=== PATIENT | male | born 1980 | race Caucasian/White ===

== ENCOUNTER 2017-09-27 05:46 | Inpatient (IN) ==
[2017-09-27] MEDS ORDERED: SCOPOLAMINE 1.5 MG PATCH TRANSDERM SCH (06:00)
[2017-09-27] MEDS ORDERED: HYOSCYAMINE 0.125 MG TABLET SL SCH (06:00)
[2017-09-27] MEDS ORDERED: PANTOPRAZOLE 40 MG VIAL IV ONE ×2 (06:00→06:07)
[2017-09-27] MEDS ORDERED: cefOXitin 3,000 MG in SODIUM CHLORIDE 0.9% 100 ML IV ONE (06:00)
[2017-09-27] MEDS ORDERED: HEPARIN 5,000 UNIT/1 ML VIAL SUBCUT ONE (06:00)
[2017-09-27] MEDS ORDERED: ACETAMINOPHEN INJ 1,000 MG in PREMIX 1 EACH IV ONE (06:00)
[2017-09-27] MEDS ORDERED: HYOSCYAMINE 0.125 MG TABLET ONE (06:08)
[2017-09-27] MEDS ORDERED: SCOPOLAMINE 1.5 MG PATCH TRANSDERM ONE (06:08)
[2017-09-27] MEDS ORDERED: HEPARIN 5,000 UNIT/1 ML VIAL ONE (06:08)
[2017-09-27] MEDS ORDERED: ACETAMINOPHEN 1,000 MG/100 ML VIAL IV ONE (06:08)
[2017-09-27] MEDS ORDERED: LIDOCAINE 1%/EPI INJ 20 ML VIAL ONE (06:24)
[2017-09-27] MEDS ORDERED: BUPIVACAINE MPF 0.25% /EPI 30 ML VIAL ONE (06:24)
[2017-09-27] MEDS ORDERED: TISSUE ADHESIVE 1 EACH APPLICATOR TOP ONE ×2 (06:24→10:11)
[2017-09-27] MEDS ORDERED: BUPIVACAINE LIPOSOMAL 20 ML/266 MG VIAL ONE (06:24)
[2017-09-27 06:32] LABS: INR 0.9; PT Patient Result 9.9 SECS; Partial Thromboplastin Time 25.8 SECS (0-40)
[2017-09-27 06:33] LABS: Apearance,Urine Slightly Hazy (Clear); Bilirubin,Urine Negative (Negative); Blood, Urine Negative (Negative); Glucose,Urine (UA) Negative (Negative); Ketones,Urine Negative (Negative); Mucus,Urine Few /LPF (Occasional); Nitrite,Urine Negative (Negative); Protein,Urine 30 MG/DL; RBC,Urine 1 /HPF (0-4); Squamous Epithelial Cell,Urine Occasional /HPF (0-10); Urine Color Yellow (Yellow); Urine Specific Gravity 1.024 (1.001-1.035); Urine Urobilinogen < 2.0 EU/DL (0.2-1.0); WBC,Urine 4 /HPF (0-6)
[2017-09-27] MEDS ORDERED: LACTATED RINGERS 1,000 ML IV SCH (07:30)
[2017-09-27] MEDS ORDERED: SUGAMMADEX 200 MG/2 ML VIAL IV ONE (09:51)
[2017-09-27] MEDS ORDERED: MIDAZOLAM 2 MG/2 ML VIAL ONE (10:26)
[2017-09-27] MEDS ORDERED: PROPOFOL 200 MG/20 ML VIAL IV ONE (10:26)
[2017-09-27] MEDS ORDERED: SEVOFLURANE 1 UNIT/15 MINUTE INH ONE (10:26)
[2017-09-27] MEDS ORDERED: DEXAMETHASONE 10 MG/1 ML VIAL ONE (10:26)
[2017-09-27] MEDS ORDERED: PHENYLEPHRINE 1 MG/10 ML SYRINGE IV ONE (10:27)
[2017-09-27] MEDS ORDERED: ROCURONIUM 100 MG/10 ML VIAL IV ONE (10:27)
[2017-09-27] MEDS ORDERED: ONDANSETRON 4 MG/2 ML VIAL ONE ×2 (10:27→11:02)
[2017-09-27] MEDS ORDERED: LACTATED RINGERS 1,000 ML IV ONE (10:27)
[2017-09-27] MEDS ORDERED: SUCCINYLCHOLINE 200 MG/10 ML VIAL ONE (10:27)
[2017-09-27] MEDS ORDERED: ALBUTEROL INHALER 8 GM INH ONE (10:28)
[2017-09-27] MEDS ORDERED: PROMETHAZINE INJ 25 MG in SODIUM CHLORIDE 0.9% 50 ML IV PRN (10:40)
[2017-09-27] MEDS ORDERED: MORPHINE 10 MG/1 ML VIAL IV PRN (10:40)
[2017-09-27] MEDS ORDERED: diphenhydrAMINE 50 MG/1 ML VIAL IV PRN (10:40)
[2017-09-27] MEDS ORDERED: ONDANSETRON 4 MG/2 ML VIAL IV PRN ×2 (10:40→11:56)
[2017-09-27] MEDS ORDERED: MEPERIDINE 25 MG/1 ML VIAL ONE ×2 (11:02→12:21)
[2017-09-27] MEDS: MEPERIDINE 25 MG/1 ML VIAL IV PRN ×2 (11:05→12:25)
[2017-09-27] MEDS ORDERED: hydrALAZINE 20 MG/1 ML VIAL IV PRN (11:56)
[2017-09-27] MEDS ORDERED: MORPHINE 4 MG/1 ML VIAL IV PRN (11:56)
[2017-09-27] MEDS: LACTATED RINGERS 1,000 ML IV SCH ×2 (12:39→19:53)
[2017-09-27 16:09] LABS: Basophils # 0.1 10*3/uL (0.0-0.2); Basophils % 0.3 % (0.0-0.8); Hematocrit 43.2 VOL% (42.0-52.0); Hemoglobin 14.4 GM/DL (14.0-18.0); Immature Granulocytes % 0.7 %; Immature Granulocytes Absolute 0.15 #; Lymphocytes # 0.9 10*3/uL (1.4-4.0); Lymphocytes % 3.9 % (21.2-54.2); Mean Corpuscular HGB Conc 33.3 GM/DL (32-36); Mean Corpuscular Hemoglobin 30 PG (27-34); Mean Corpuscular Volume 90.4 FL (87-102); Mean Platelet Volume 11.7 FL (9.6-12.0); Monocytes # 0.2 10*3/uL (0.11-0.8); Monocytes % 0.9 % (1.7-12.7); Neutrophils # 21.5 10*3/uL (1.4-7.4); Neutrophils % 94.2 % (38.7-73.9); Platelet Count 298 T/CUMM (130-400); Red Blood Count 4.78 MC/CUMM (3.8-5.5); Red Cell Distribution Width 13.2 % (9.3-17.3); White Blood Count 22.8 T/CUMM (4-12)
[2017-09-27 16:26] LABS: Calcium 8.8 MG/DL (8.5-10.1); Osmolality,Calculated 279.5 MOS/KG (273-304); Potassium 3.8 MMOL/L (3.5-5.1)
[2017-09-27] MEDS: ceFAZolin 2,000 MG in PREMIX 1 EACH IV SCH (16:41)
[2017-09-27 16:54] LABS: Band Neutrophils 6 % (0-10); Lymphocytes 3 % (20-55); Segmented Neutrophils 88 % (50-85); Total Cells Counted 100
[2017-09-27 16:55] LABS: Platelet Estimate Normal
[2017-09-27] MEDS: HYDROcod/ACETAMIN 7.5-325 MG/15 ML UDCUP PO PRN ×2 (17:29→21:53)
[2017-09-28] MEDS: HYDROcod/ACETAMIN 7.5-325 MG/15 ML UDCUP PO PRN ×5 (01:55→22:26)
[2017-09-28] MEDS: ceFAZolin 2,000 MG in PREMIX 1 EACH IV SCH (01:58)
[2017-09-28] MEDS: LACTATED RINGERS 1,000 ML IV SCH ×2 (02:01→09:34)
[2017-09-28 05:31] LABS: Basophils % 0.1 % (0.0-0.8); Eosinophils % 0.1 % (0.00-10.9); Hematocrit 39.5 VOL% (42.0-52.0); Hemoglobin 13.5 GM/DL (14.0-18.0); Immature Granulocytes % 0.7 %; Immature Granulocytes Absolute 0.14 #; Lymphocytes # 1.8 10*3/uL (1.4-4.0); Lymphocytes % 8.5 % (21.2-54.2); Mean Corpuscular HGB Conc 34.2 GM/DL (32-36); Mean Corpuscular Hemoglobin 30 PG (27-34); Mean Corpuscular Volume 88.2 FL (87-102); Mean Platelet Volume 11.5 FL (9.6-12.0); Monocytes # 1.2 10*3/uL (0.11-0.8); Monocytes % 5.6 % (1.7-12.7); Neutrophils # 17.7 10*3/uL (1.4-7.4); Platelet Count 301 T/CUMM (130-400); Red Blood Count 4.48 MC/CUMM (3.8-5.5); Red Cell Distribution Width 13.2 % (9.3-17.3); White Blood Count 20.8 T/CUMM (4-12)
[2017-09-28 06:01] LABS: Calcium 8.8 MG/DL (8.5-10.1); Osmolality,Calculated 276.5 MOS/KG (273-304); Potassium 3.6 MMOL/L (3.5-5.1)
[2017-09-28 06:05] LABS: Hypochromasia Slight; Lymphocytes 8 % (20-55); Platelet Estimate Adequate; Segmented Neutrophils 83 % (50-85); Total Cells Counted 100
[2017-09-28] MEDS: PANTOPRAZOLE 40 MG VIAL IV SCH (09:25)
[2017-09-28 15:03] LABS: Basophils # 0.1 10*3/uL (0.0-0.2); Basophils % 0.3 % (0.0-0.8); Eosinophils # 0.1 10*3/uL (0.0-0.87); Eosinophils % 0.4 % (0.00-10.9); Hematocrit 40.2 VOL% (42.0-52.0); Hemoglobin 13.2 GM/DL (14.0-18.0); Immature Granulocytes % 0.5 %; Lymphocytes # 2.7 10*3/uL (1.4-4.0); Lymphocytes % 13.3 % (21.2-54.2); Mean Corpuscular HGB Conc 32.8 GM/DL (32-36); Mean Corpuscular Hemoglobin 30 PG (27-34); Mean Corpuscular Volume 90.3 FL (87-102); Mean Platelet Volume 11.2 FL (9.6-12.0); Monocytes # 1.5 10*3/uL (0.11-0.8); Monocytes % 7.5 % (1.7-12.7); Neutrophils # 15.6 10*3/uL (1.4-7.4); Platelet Count 277 T/CUMM (130-400); Red Blood Count 4.45 MC/CUMM (3.8-5.5); Red Cell Distribution Width 13.2 % (9.3-17.3)
[2017-09-28] MEDS ORDERED: BENZONATATE 100 MG CAPSULE PO PRN (15:30)
[2017-09-28 15:38] LABS: Giant Platelets Few; Lymphocytes 10 % (20-55); Platelet Estimate Normal; Segmented Neutrophils 85 % (50-85); Total Cells Counted 100
[2017-09-28] MEDS: SIMETHICONE CHEW 80 MG TABLET PO SCH ×2 (16:48→21:28)
[2017-09-28] MEDS ORDERED: MELATONIN 3 MG TABLET PO SCH (21:00)
[2017-09-28] MEDS ORDERED: ZALEPLON 5 MG CAPSULE PO SCH (21:00)
[2017-09-28] MEDS ORDERED: ENOXAPARIN 40 MG/0.4 ML SYRINGE SUBCUT SCH (22:00)
[2017-09-29] MEDS: LACTATED RINGERS 1,000 ML IV SCH ×3 (00:20→09:22)
[2017-09-29] MEDS: HYDROcod/ACETAMIN 7.5-325 MG/15 ML UDCUP PO PRN (07:38)
[2017-09-29 08:07] LABS: Basophils # 0.1 10*3/uL (0.0-0.2); Basophils % 0.4 % (0.0-0.8); Eosinophils # 0.2 10*3/uL (0.0-0.87); Eosinophils % 1.3 % (0.00-10.9); Hematocrit 41.3 VOL% (42.0-52.0); Hemoglobin 13.6 GM/DL (14.0-18.0); Immature Granulocytes % 0.5 %; Immature Granulocytes Absolute 0.07 #; Lymphocytes # 2.3 10*3/uL (1.4-4.0); Lymphocytes % 15.4 % (21.2-54.2); Mean Corpuscular HGB Conc 32.9 GM/DL (32-36); Mean Corpuscular Hemoglobin 30 PG (27-34); Mean Corpuscular Volume 90.8 FL (87-102); Mean Platelet Volume 11.5 FL (9.6-12.0); Monocytes # 1.1 10*3/uL (0.11-0.8); Monocytes % 7.4 % (1.7-12.7); Platelet Count 254 T/CUMM (130-400); Red Blood Count 4.55 MC/CUMM (3.8-5.5); Red Cell Distribution Width 13.3 % (9.3-17.3); White Blood Count 14.7 T/CUMM (4-12)
[2017-09-29] MEDS ORDERED: LOSARTAN 50 MG TABLET PO SCH (09:00)
[2017-09-29] MEDS ORDERED: ALLOPURINOL 300 MG TABLET PO SCH (09:00)
[2017-09-29] MEDS ORDERED: amLODIPine 10 MG TABLET PO SCH (09:00)
[2017-09-29] MEDS: PANTOPRAZOLE 40 MG VIAL IV SCH (09:23)
[2017-09-29] MEDS: SIMETHICONE CHEW 80 MG TABLET PO SCH (09:25)
[2017-09-29 12:10] VITALS: BP 126/80
== END 2017-09-29 11:58 | disposition home or self-care (01) | DRG 621 ==
LOC: N.OR 05:46 → N.SDSINP 05:48 → N.3E 15:19
PROVIDERS: ADMIT Surgery; ATTEND Surgery